=== PATIENT | female | born 1965 | race Caucasian/White ===

== ENCOUNTER 2021-07-23 09:13 | Inpatient (IN) ==
[2021-07-23] MEDS ORDERED: Isovue-370 500 ML BOTTLE IVP ONE (09:19)
[2021-07-23 09:53] LABS: Hematocrit 38.2 % (35.3-44.9); Hemoglobin 12.1 g/dL (11.5-15.4); Mean Corpuscular HGB Conc 31.7 g/dL (31.6-35.5); Mean Corpuscular Hemoglobin 25.9 pg (28.0-33.3); Mean Corpuscular Volume 81.8 fL (83.0-100.0); Mean Platelet Volume 9.8 fL (9.4-12.4); Platelet Count 378 K/mcL (140-400); Red Blood Count 4.67 M/mcL (3.82-4.97); Red Cell Distribution Width 14.4 % (11.5-14.5); White Blood Count 22.1 K/mcL (4.3-11.1)
[2021-07-23 09:55] LABS: VBG HCO3 24 mEq/L (21-27); VBG PCO2 44 mmHg (41-51); VBG PH 7.34 pH Units (7.32-7.42); VBG PO2 37 mmHg (25-50)
[2021-07-23 10:17] LABS: Lymphocytes # 2.2 K/mcL (0.6-4.6); Monocytes # 0.4 K/mcL (0.0-1.3); Neutrophils # 19.5 K/mcL (1.6-8.9); Platelet Estimate Normal (Normal)
[2021-07-23 10:36] LABS: Alanine Aminotransferase 34 Units/L (7-52); Albumin 3.8 g/dL (3.5-5.7); Alkaline Phosphatase 98 Units/L (34-104); Aspartate Amino Transferase 40 Units/L (13-39); BUN/Creatinine Ratio 38 (6-26); Bilirubin,Direct 0.1 mg/dL (0.0-0.2); Bilirubin,Indirect 0.5 mg/dL (0.0-1.0); Bilirubin,Total 0.6 mg/dL (0.3-1.0); Blood Urea Nitrogen 40 mg/dL (6-20); Calcium 9.5 mg/dL (8.6-10.3); Carbon Dioxide 22 mEq/L (23-29); Chloride 101 mEq/L (98-107); Globulin 3.9 g/dL (2.4-3.5); Glucose 197 mg/dL (70-105); Magnesium 2.4 mg/dL (1.6-2.6); Osmolality,Calculated 301 (280-300); Sodium 138 mEq/L (136-145); Total Protein 7.7 g/dL (6.4-8.9); Troponin I 0.03 ng/mL (< 0.04); eGFR For African Americans > 60 (> 60); eGFR For Non-African Americans 55 (> 60)
[2021-07-23 10:55] LABS: Ferritin 940 ng/mL (10-120)
[2021-07-23] MEDS ORDERED: *HR* Heparin 5,000 UNIT/ML VIAL IVP ONE (11:27)
[2021-07-23] MEDS ORDERED: *HR* Heparin 5,000 UNIT/ML VIAL IVP PRN (11:27)
[2021-07-23] MEDS ORDERED: Piperacillin/Tazobactam 3.375 GM in Water for inj. (sterile) 20 ML IVP ONE (11:27)
[2021-07-23] MEDS ORDERED: Potassium Chloride Elixir 20 MEQ/15 ML UDC PO ONE (11:41)
[2021-07-23] MEDS ORDERED: Vancomycin 1,250 MG/262.5 ML IV.SOLN IVPB ONE (12:00)
[2021-07-23] MEDS: Heparin 25,000UNIT/250ML 1/2NS 25,000 UNIT/250 ML IV.SOLN IVC SCH (12:13)
[2021-07-23 12:45] LABS: Hematocrit 36.5 % (35.3-44.9); Hemoglobin 11.6 g/dL (11.5-15.4); Mean Corpuscular HGB Conc 31.8 g/dL (31.6-35.5); Mean Corpuscular Hemoglobin 25.8 pg (28.0-33.3); Mean Corpuscular Volume 81.1 fL (83.0-100.0); Mean Platelet Volume 9.6 fL (9.4-12.4); Platelet Count 302 K/mcL (140-400); Red Cell Distribution Width 14.2 % (11.5-14.5); White Blood Count 22.3 K/mcL (4.3-11.1)
[2021-07-23 12:53] LABS: Heparin anti-factor XA UFH < 0.04 IU/mL (0.30-0.70); INR 1.6; Prothrombin Time 18.2 Seconds (9.4-12.1)
[2021-07-23] MEDS ORDERED: Naloxone 0.4 MG/ML INJ IVP PRN (13:18)
[2021-07-23] MEDS ORDERED: Acetaminophen 325 MG TABLET PO PRN (13:34)
[2021-07-23 13:54] LABS: ABG Base Excess -1 mEq/L (-2 to 3); ABG HCO3 23 mEq/L (21-27); ABG Oxygen Saturation 94 % (95-98); ABG PCO2 35 mmHg (35-45); ABG PH 7.43 pH Units (7.32-7.45); ABG PO2 67 mmHg (85-104); ABG TCO2 24 mEq/L (20-26)
[2021-07-23 16:29] LABS: Influenza A PCR Negative (Negative); Influenza B PCR Negative (Negative); Resp. Syncytial Virus PCR Negative (Negative)
[2021-07-23] MEDS ORDERED: Potassium Chloride 20 MEQ, Lidocaine 1% 2 ML in 0.9 % Sodium Chloride 250 ML IVPB ONE (16:45)
[2021-07-23 17:57] LABS: SARS-CoV-2 by PCR (In House) Positive (Negative)
[2021-07-23 19:32] LABS: C-Reactive Protein 112 mg/L (Less than 10)
[2021-07-23] MEDS: Ipratropium 1 PUFF INHALER IH SCH (20:28)
[2021-07-23] MEDS: Piperacillin/Tazobactam 3.375 GM in 0.9 % Sodium Chloride Mini Bag 100 ML IVPB SCH (23:12)
[2021-07-23] MEDS: Ringers Solution, Lactated 1,000 ML IVC SCH (23:14)
[2021-07-24] MEDS: Piperacillin/Tazobactam 3.375 GM in 0.9 % Sodium Chloride Mini Bag 100 ML IVPB SCH ×3 (00:04→15:20)
[2021-07-24] MEDS: Ipratropium 1 PUFF INHALER IH SCH ×7 (00:07→23:30)
[2021-07-24 04:33] LABS: Basophils % 0.1 %; Hematocrit 28.7 % (35.3-44.9); Immature Granulocytes % 1.8 % (0-4); Lymphocytes # 1.4 K/mcL (0.6-4.6); Lymphocytes % 9.8 %; Mean Corpuscular HGB Conc 32.8 g/dL (31.6-35.5); Mean Corpuscular Hemoglobin 26.7 pg (28.0-33.3); Mean Corpuscular Volume 81.5 fL (83.0-100.0); Monocytes # 0.8 K/mcL (0.0-1.3); Monocytes % 5.6 %; Platelet Count 285 K/mcL (140-400); Red Blood Count 3.52 M/mcL (3.82-4.97); Red Cell Distribution Width 14.5 % (11.5-14.5); Segmented Neutrophils % 82.7 %; White Blood Count 14.7 K/mcL (4.3-11.1)
[2021-07-24 04:46] LABS: Alanine Aminotransferase 22 Units/L (7-52); Albumin 2.9 g/dL (3.5-5.7); Alkaline Phosphatase 75 Units/L (34-104); Aspartate Amino Transferase 22 Units/L (13-39); BUN/Creatinine Ratio 44 (6-26); Bilirubin,Total 0.5 mg/dL (0.3-1.0); Blood Urea Nitrogen 43 mg/dL (6-20); Calcium 8.2 mg/dL (8.6-10.3); Carbon Dioxide 23 mEq/L (23-29); Chloride 109 mEq/L (98-107); Globulin 2.9 g/dL (2.4-3.5); Glucose 163 mg/dL (70-105); Osmolality,Calculated 310 (280-300); Potassium 3.8 mEq/L (3.5-5.1); Sodium 143 mEq/L (136-145); Total Protein 5.8 g/dL (6.4-8.9); eGFR For African Americans > 60 (> 60); eGFR For Non-African Americans 59 (> 60)
[2021-07-24 04:51] LABS: Hemoglobin 9.4 g/dL (11.5-15.4); Neutrophils # 12.2 K/mcL (1.6-8.9)
[2021-07-24 05:56] LABS: Platelet Estimate Normal (Normal); Reactive Lymphocytes Present (Not Present)
[2021-07-24] MEDS: Cholecalciferol (D-3) 1,000 UNIT (25MCG) TABLET PO SCH (07:28)
[2021-07-24] MEDS: Ringers Solution, Lactated 1,000 ML IVC SCH (08:43)
[2021-07-24] MEDS: Heparin 25,000UNIT/250ML 1/2NS 25,000 UNIT/250 ML IV.SOLN IVC SCH (11:18)
[2021-07-24 11:51] LABS: C-Reactive Protein 62 mg/L (Less than 10)
[2021-07-25] MEDS: Piperacillin/Tazobactam 3.375 GM in 0.9 % Sodium Chloride Mini Bag 100 ML IVPB SCH ×4 (00:16→23:15)
[2021-07-25] MEDS: Ipratropium 1 PUFF INHALER IH SCH ×6 (03:22→23:59)
[2021-07-25] MEDS ORDERED: *HR* LORazepam 2 MG/ML VIAL IVP ONE (06:04)
[2021-07-25] MEDS ORDERED: Morphine Sulfate 2 MG/ML SYRINGE IVP ONE (06:20)
[2021-07-25] MEDS ORDERED: *HR* LORazepam 2 MG/ML VIAL IVP STA (08:56)
[2021-07-25] MEDS: Cholecalciferol (D-3) 1,000 UNIT (25MCG) TABLET PO SCH (09:36)
[2021-07-25] MEDS: Dexmedetomidine HCl 400 MCG/100 ML MLS IVC SCH (10:28)
[2021-07-25 15:15] LABS: Basophils # 0.1 K/mcL (0.0-0.2); Basophils % 0.3 %; Hematocrit 30.2 % (35.3-44.9); Hemoglobin 9.5 g/dL (11.5-15.4); Lymphocytes # 0.8 K/mcL (0.6-4.6); Lymphocytes % 4.4 %; Mean Corpuscular HGB Conc 31.5 g/dL (31.6-35.5); Mean Corpuscular Volume 82.5 fL (83.0-100.0); Monocytes # 0.4 K/mcL (0.0-1.3); Monocytes % 2.2 %; Neutrophils # 15.4 K/mcL (1.6-8.9); Nucleated Red Blood Cells 0.1 /100 WBC (0); Platelet Count 256 K/mcL (140-400); Red Blood Count 3.66 M/mcL (3.82-4.97); Red Cell Distribution Width 14.6 % (11.5-14.5); Segmented Neutrophils % 89.1 %; White Blood Count 17.3 K/mcL (4.3-11.1)
[2021-07-25 15:59] LABS: Alanine Aminotransferase 28 Units/L (7-52); Albumin 3.1 g/dL (3.5-5.7); Alkaline Phosphatase 187 Units/L (34-104); Aspartate Amino Transferase 43 Units/L (13-39); BUN/Creatinine Ratio 42 (6-26); Bilirubin,Total 0.7 mg/dL (0.3-1.0); Blood Urea Nitrogen 34 mg/dL (6-20); Calcium 8.3 mg/dL (8.6-10.3); Carbon Dioxide 24 mEq/L (23-29); Chloride 109 mEq/L (98-107); Ferritin 565 ng/mL (10-120); Globulin 3.1 g/dL (2.4-3.5); Glucose 188 mg/dL (70-105); Lactate Dehydrogenase 962 Units/L (140-271); Osmolality,Calculated 307 (280-300); Sodium 142 mEq/L (136-145); Total Protein 6.2 g/dL (6.4-8.9); eGFR For African Americans > 60 (> 60); eGFR For Non-African Americans > 60 (> 60)
[2021-07-26] MEDS: *HR* Heparin 5,000 UNIT/ML VIAL IVP PRN (00:47)
[2021-07-26] MEDS: Heparin 25,000UNIT/250ML 1/2NS 25,000 UNIT/250 ML IV.SOLN IVC SCH (02:31)
[2021-07-26] MEDS: Ipratropium 1 PUFF INHALER IH SCH ×5 (03:04→19:59)
[2021-07-26] MEDS: Dexmedetomidine HCl 400 MCG/100 ML MLS IVC SCH ×2 (03:55→17:27)
[2021-07-26 04:59] LABS: Basophils % 0.2 %; Hematocrit 29.4 % (35.3-44.9); Hemoglobin 9.5 g/dL (11.5-15.4); Immature Granulocytes % 3.2 % (0-4); Lymphocytes # 1.1 K/mcL (0.6-4.6); Lymphocytes % 6.7 %; Mean Corpuscular HGB Conc 32.3 g/dL (31.6-35.5); Mean Corpuscular Hemoglobin 26.6 pg (28.0-33.3); Mean Corpuscular Volume 82.4 fL (83.0-100.0); Mean Platelet Volume 10.1 fL (9.4-12.4); Monocytes # 0.4 K/mcL (0.0-1.3); Monocytes % 2.2 %; Neutrophils # 14.1 K/mcL (1.6-8.9); Nucleated Red Blood Cells 0.1 /100 WBC (0); Platelet Count 240 K/mcL (140-400); Red Blood Count 3.57 M/mcL (3.82-4.97); Red Cell Distribution Width 14.6 % (11.5-14.5); Segmented Neutrophils % 87.7 %; White Blood Count 16.1 K/mcL (4.3-11.1)
[2021-07-26 06:47] LABS: BUN/Creatinine Ratio 45 (6-26); Blood Urea Nitrogen 38 mg/dL (6-20); Calcium 8.5 mg/dL (8.6-10.3); Carbon Dioxide 25 mEq/L (23-29); Chloride 110 mEq/L (98-107); Glucose 133 mg/dL (70-105); Osmolality,Calculated 309 (280-300); Potassium 3.9 mEq/L (3.5-5.1); Sodium 144 mEq/L (136-145); eGFR For African Americans > 60 (> 60); eGFR For Non-African Americans > 60 (> 60)
[2021-07-26] MEDS ORDERED: Furosemide 40 MG/4 ML VIAL IVP ONE (07:55)
[2021-07-26] MEDS: Piperacillin/Tazobactam 3.375 GM in 0.9 % Sodium Chloride Mini Bag 100 ML IVPB SCH ×2 (12:04→17:11)
[2021-07-26] MEDS: Cholecalciferol (D-3) 1,000 UNIT (25MCG) TABLET PO SCH ×2 (12:16→13:02)
[2021-07-27] MEDS: Ipratropium 1 PUFF INHALER IH SCH ×6 (00:11→20:39)
[2021-07-27] MEDS: Piperacillin/Tazobactam 3.375 GM in 0.9 % Sodium Chloride Mini Bag 100 ML IVPB SCH ×4 (00:49→23:51)
[2021-07-27] MEDS: Ondansetron 4 MG/2 ML VIAL IVP PRN ×2 (02:53→21:39)
[2021-07-27] MEDS: Heparin 25,000UNIT/250ML 1/2NS 25,000 UNIT/250 ML IV.SOLN IVC SCH ×3 (03:58→16:54)
[2021-07-27 04:32] LABS: Basophils % 0.1 %; Hematocrit 27.9 % (35.3-44.9); Hemoglobin 9.1 g/dL (11.5-15.4); Immature Granulocytes % 3.4 % (0-4); Lymphocytes # 0.8 K/mcL (0.6-4.6); Lymphocytes % 5.2 %; Mean Corpuscular HGB Conc 32.6 g/dL (31.6-35.5); Mean Corpuscular Hemoglobin 26.7 pg (28.0-33.3); Mean Corpuscular Volume 81.8 fL (83.0-100.0); Mean Platelet Volume 10.5 fL (9.4-12.4); Monocytes # 0.3 K/mcL (0.0-1.3); Monocytes % 1.9 %; Neutrophils # 13.9 K/mcL (1.6-8.9); Nucleated Red Blood Cells 0.2 /100 WBC (0); Platelet Count 250 K/mcL (140-400); Red Blood Count 3.41 M/mcL (3.82-4.97); Red Cell Distribution Width 14.6 % (11.5-14.5); Segmented Neutrophils % 89.4 %; White Blood Count 15.5 K/mcL (4.3-11.1)
[2021-07-27 05:11] LABS: Alanine Aminotransferase 31 Units/L (7-52); Albumin 2.8 g/dL (3.5-5.7); Albumin/Globulin Ratio 0.8 (1.1-2.2); Alkaline Phosphatase 237 Units/L (34-104); Aspartate Amino Transferase 31 Units/L (13-39); BUN/Creatinine Ratio 46 (6-26); Bilirubin,Total 0.8 mg/dL (0.3-1.0); Blood Urea Nitrogen 37 mg/dL (6-20); Calcium 8.1 mg/dL (8.6-10.3); Carbon Dioxide 25 mEq/L (23-29); Chloride 105 mEq/L (98-107); Globulin 3.4 g/dL (2.4-3.5); Glucose 152 mg/dL (70-105); Lactate Dehydrogenase 873 Units/L (140-271); Osmolality,Calculated 306 (280-300); Potassium 3.6 mEq/L (3.5-5.1); Sodium 142 mEq/L (136-145); Total Protein 6.2 g/dL (6.4-8.9); eGFR For African Americans > 60 (> 60); eGFR For Non-African Americans > 60 (> 60)
[2021-07-27 05:28] LABS: Ferritin 556 ng/mL (10-120)
[2021-07-27] MEDS ORDERED: Furosemide 40 MG/4 ML VIAL IVP ONE (08:07)
[2021-07-27] MEDS: Pantoprazole 40 MG VIAL IVP SCH (08:44)
[2021-07-27] MEDS: Cholecalciferol (D-3) 1,000 UNIT (25MCG) TABLET PO SCH (08:44)
[2021-07-27] MEDS: *HR* LORazepam 2 MG/ML VIAL IVP PRN (08:45)
[2021-07-27] MEDS: Dexmedetomidine HCl 400 MCG/100 ML MLS IVC SCH (11:21)
[2021-07-28] MEDS: Ipratropium 1 PUFF INHALER IH SCH ×7 (00:13→23:15)
[2021-07-28] MEDS: Dexmedetomidine HCl 400 MCG/100 ML MLS IVC SCH ×2 (05:00→17:03)
[2021-07-28] MEDS: Piperacillin/Tazobactam 3.375 GM in 0.9 % Sodium Chloride Mini Bag 100 ML IVPB SCH ×2 (08:05→16:52)
[2021-07-28] MEDS: Pantoprazole 40 MG VIAL IVP SCH (08:06)
[2021-07-28] MEDS: Cholecalciferol (D-3) 1,000 UNIT (25MCG) TABLET PO SCH (08:06)
[2021-07-28 11:13] LABS: Basophils % 0.2 %; Hematocrit 30.8 % (35.3-44.9); Hemoglobin 9.7 g/dL (11.5-15.4); Immature Granulocytes % 1.9 % (0-4); Lymphocytes # 0.5 K/mcL (0.6-4.6); Lymphocytes % 3.2 %; Mean Corpuscular HGB Conc 31.5 g/dL (31.6-35.5); Mean Corpuscular Hemoglobin 26.1 pg (28.0-33.3); Mean Corpuscular Volume 82.8 fL (83.0-100.0); Mean Platelet Volume 10.3 fL (9.4-12.4); Monocytes # 0.3 K/mcL (0.0-1.3); Monocytes % 1.9 %; Neutrophils # 15.4 K/mcL (1.6-8.9); Nucleated Red Blood Cells 0.1 /100 WBC (0); Platelet Count 263 K/mcL (140-400); Red Blood Count 3.72 M/mcL (3.82-4.97); Segmented Neutrophils % 92.8 %; White Blood Count 16.6 K/mcL (4.3-11.1)
[2021-07-28] MEDS: Heparin 25,000UNIT/250ML 1/2NS 25,000 UNIT/250 ML IV.SOLN IVC SCH (11:13)
[2021-07-28 11:38] LABS: Alanine Aminotransferase 25 Units/L (7-52); Albumin/Globulin Ratio 0.9 (1.1-2.2); Alkaline Phosphatase 233 Units/L (34-104); Aspartate Amino Transferase 30 Units/L (13-39); BUN/Creatinine Ratio 51 (6-26); Bilirubin,Total 0.9 mg/dL (0.3-1.0); Blood Urea Nitrogen 40 mg/dL (6-20); Calcium 8.4 mg/dL (8.6-10.3); Carbon Dioxide 25 mEq/L (23-29); Chloride 102 mEq/L (98-107); Globulin 3.4 g/dL (2.4-3.5); Glucose 143 mg/dL (70-105); Osmolality,Calculated 298 (280-300); Potassium 3.6 mEq/L (3.5-5.1); Sodium 138 mEq/L (136-145); Total Protein 6.4 g/dL (6.4-8.9); eGFR For African Americans > 60 (> 60); eGFR For Non-African Americans > 60 (> 60)
[2021-07-28] MEDS ORDERED: Furosemide 40 MG/4 ML VIAL IVP ONE (11:49)
[2021-07-29] MEDS: Piperacillin/Tazobactam 3.375 GM in 0.9 % Sodium Chloride Mini Bag 100 ML IVPB SCH ×3 (00:13→17:32)
[2021-07-29] MEDS: Ipratropium 1 PUFF INHALER IH SCH ×5 (03:53→20:26)
[2021-07-29] MEDS: *HR* LORazepam 2 MG/ML VIAL IVP PRN (04:17)
[2021-07-29] MEDS: Dexmedetomidine HCl 400 MCG/100 ML MLS IVC SCH ×3 (04:43→17:21)
[2021-07-29 05:00] LABS: Basophils % 0.1 %; Eosinophils % 0.1 %; Hematocrit 32.8 % (35.3-44.9); Hemoglobin 10.3 g/dL (11.5-15.4); Immature Granulocytes % 1.8 % (0-4); Lymphocytes # 0.7 K/mcL (0.6-4.6); Lymphocytes % 4.5 %; Mean Corpuscular HGB Conc 31.4 g/dL (31.6-35.5); Mean Corpuscular Hemoglobin 25.9 pg (28.0-33.3); Mean Corpuscular Volume 82.6 fL (83.0-100.0); Mean Platelet Volume 10.6 fL (9.4-12.4); Monocytes # 0.3 K/mcL (0.0-1.3); Monocytes % 1.8 %; Neutrophils # 13.4 K/mcL (1.6-8.9); Platelet Count 269 K/mcL (140-400); Red Blood Count 3.97 M/mcL (3.82-4.97); Red Cell Distribution Width 14.9 % (11.5-14.5); Segmented Neutrophils % 91.7 %; White Blood Count 14.7 K/mcL (4.3-11.1)
[2021-07-29 05:17] LABS: Alanine Aminotransferase 29 Units/L (7-52); Albumin 2.9 g/dL (3.5-5.7); Albumin/Globulin Ratio 0.8 (1.1-2.2); Alkaline Phosphatase 238 Units/L (34-104); Aspartate Amino Transferase 32 Units/L (13-39); BUN/Creatinine Ratio 53 (6-26); Blood Urea Nitrogen 41 mg/dL (6-20); Calcium 8.3 mg/dL (8.6-10.3); Carbon Dioxide 27 mEq/L (23-29); Chloride 100 mEq/L (98-107); Globulin 3.7 g/dL (2.4-3.5); Glucose 122 mg/dL (70-105); Osmolality,Calculated 299 (280-300); Potassium 3.5 mEq/L (3.5-5.1); Sodium 139 mEq/L (136-145); Total Protein 6.6 g/dL (6.4-8.9); eGFR For African Americans > 60 (> 60); eGFR For Non-African Americans > 60 (> 60)
[2021-07-29] MEDS ORDERED: Lidocaine -MPF 1% 5 ML AMPUL INFILT ONE (08:19)
[2021-07-29 09:37] LABS: Magnesium 2.3 mg/dL (1.6-2.6); Triglycerides 348 mg/dL (< 150)
[2021-07-29] MEDS: Furosemide 40 MG/4 ML VIAL IVP SCH (10:14)
[2021-07-29] MEDS: Pantoprazole 40 MG VIAL IVP SCH (10:14)
[2021-07-29] MEDS: Cholecalciferol (D-3) 1,000 UNIT (25MCG) TABLET PO SCH (10:15)
[2021-07-29] MEDS ORDERED: *HR* Dextrose 50 % in Water (Syg) 50 ML SYRINGE IVP PRN (10:24)
[2021-07-29] MEDS ORDERED: D5% in Water 1,000 ML IVC PRN (10:24)
[2021-07-29] MEDS ORDERED: Dextrose Gel 15 GM/37.5 ML TUBE PO PRN ×2 (10:24)
[2021-07-29] MEDS ORDERED: Insulin LISPRO 300 UNITS/3 ML VIAL SUBQ SCH (10:30)
[2021-07-29] MEDS ORDERED: D10% in Water 500 ML IVC PRN ×3 (10:41→10:53)
[2021-07-29] MEDS: Insulin LISPRO 300 UNITS/3 ML VIAL SUBQ SCH ×3 (13:33→22:07)
[2021-07-29] MEDS: Heparin 25,000UNIT/250ML 1/2NS 25,000 UNIT/250 ML IV.SOLN IVC SCH (14:45)
[2021-07-29] MEDS ORDERED: Clinimix E 5%-15% SOLUTION 2,000 ML with MVI, adult with vitamin K 10 ML IVC SCH (17:00)
[2021-07-29] MEDS ORDERED: Fat Emulsions 20% 250 ML IVPB SCH (17:00)
[2021-07-29] MEDS: *HR* Heparin 5,000 UNIT/ML VIAL IVP PRN (17:19)
[2021-07-30] MEDS: Piperacillin/Tazobactam 3.375 GM in 0.9 % Sodium Chloride Mini Bag 100 ML IVPB SCH ×3 (00:08→17:22)
[2021-07-30] MEDS: Ipratropium 1 PUFF INHALER IH SCH ×7 (00:16→23:36)
[2021-07-30] MEDS: Insulin LISPRO 300 UNITS/3 ML VIAL SUBQ SCH ×6 (00:46→22:50)
[2021-07-30 03:57] LABS: Magnesium 2.5 mg/dL (1.6-2.6); Phosphorous 7.5 mg/dL (2.7-4.5)
[2021-07-30 05:55] LABS: Basophils # 0.1 K/mcL (0.0-0.2); Basophils % 0.3 %; Eosinophils % 0.2 %; Hematocrit 32.7 % (35.3-44.9); Hemoglobin 10.6 g/dL (11.5-15.4); Immature Granulocytes % 2.9 % (0-4); Lymphocytes # 0.7 K/mcL (0.6-4.6); Lymphocytes % 3.6 %; Mean Corpuscular HGB Conc 32.4 g/dL (31.6-35.5); Mean Platelet Volume 11.1 fL (9.4-12.4); Monocytes # 0.3 K/mcL (0.0-1.3); Monocytes % 1.6 %; Neutrophils # 17.4 K/mcL (1.6-8.9); Nucleated Red Blood Cells 0.2 /100 WBC (0); Platelet Count 260 K/mcL (140-400); Red Blood Count 3.92 M/mcL (3.82-4.97); Red Cell Distribution Width 14.8 % (11.5-14.5); Segmented Neutrophils % 91.4 %; White Blood Count 19.1 K/mcL (4.3-11.1)
[2021-07-30 05:56] LABS: Mean Corpuscular Volume 83.4 fL (83.0-100.0)
[2021-07-30] MEDS: Pantoprazole 40 MG VIAL IVP SCH (09:22)
[2021-07-30] MEDS: Cholecalciferol (D-3) 1,000 UNIT (25MCG) TABLET PO SCH (09:29)
[2021-07-30 10:47] LABS: Alanine Aminotransferase 45 Units/L (7-52); Albumin 2.9 g/dL (3.5-5.7); Albumin/Globulin Ratio 0.9 (1.1-2.2); Alkaline Phosphatase 208 Units/L (34-104); Aspartate Amino Transferase 47 Units/L (13-39); BUN/Creatinine Ratio 48 (6-26); Bilirubin,Total 0.9 mg/dL (0.3-1.0); Blood Urea Nitrogen 29 mg/dL (6-20); Calcium 8.5 mg/dL (8.6-10.3); Carbon Dioxide 28 mEq/L (23-29); Chloride 101 mEq/L (98-107); Globulin 3.4 g/dL (2.4-3.5); Glucose 157 mg/dL (70-105); Lactate Dehydrogenase 664 Units/L (140-271); Osmolality,Calculated 299 (280-300); Potassium 3.3 mEq/L (3.5-5.1); Sodium 140 mEq/L (136-145); Total Protein 6.3 g/dL (6.4-8.9); eGFR For African Americans > 60 (> 60); eGFR For Non-African Americans > 60 (> 60)
[2021-07-30] MEDS ORDERED: Potassium Chloride 40 MEQ, Lidocaine 1% 2 ML in 0.9 % Sodium Chloride 500 ML IVPB ONE (10:53)
[2021-07-30] MEDS: Furosemide 40 MG/4 ML VIAL IVP SCH (11:33)
[2021-07-30] MEDS: Dexmedetomidine HCl 400 MCG/100 ML MLS IVC SCH (11:34)
[2021-07-30 11:35] LABS: Ferritin 772 ng/mL (10-120)
[2021-07-30] MEDS ORDERED: Clinimix 5%-20% SOLUTION 2,000 ML with MVI, adult with vitamin K 10 ML, Sodium Acetat... IVC SCH (17:00)
[2021-07-30] MEDS ORDERED: Clinimix E 5%-15% SOLUTION 2,000 ML with MVI, adult with vitamin K 10 ML IVC SCH (17:00)
[2021-07-30] MEDS: Heparin 25,000UNIT/250ML 1/2NS 25,000 UNIT/250 ML IV.SOLN IVC SCH (17:23)
[2021-07-30] MEDS: *HR* LORazepam 2 MG/ML VIAL IVP PRN (22:49)
[2021-07-31] MEDS: Dexmedetomidine HCl 400 MCG/100 ML MLS IVC SCH ×3 (02:30→19:41)
[2021-07-31] MEDS: Insulin LISPRO 300 UNITS/3 ML VIAL SUBQ SCH ×6 (02:47→21:31)
[2021-07-31] MEDS: Ipratropium 1 PUFF INHALER IH SCH ×5 (03:40→20:32)
[2021-07-31] MEDS: *HR* LORazepam 2 MG/ML VIAL IVP PRN ×3 (05:02→20:14)
[2021-07-31 05:46] LABS: BUN/Creatinine Ratio 51 (6-26); Blood Urea Nitrogen 28 mg/dL (6-20); Calcium 8.5 mg/dL (8.6-10.3); Carbon Dioxide 33 mEq/L (23-29); Chloride 103 mEq/L (98-107); Glucose 98 mg/dL (70-105); Magnesium 1.8 mg/dL (1.6-2.6); Osmolality,Calculated 299 (280-300); Phosphorous 1.8 mg/dL (2.7-4.5); Potassium 3.8 mEq/L (3.5-5.1); Sodium 142 mEq/L (136-145); eGFR For African Americans > 60 (> 60); eGFR For Non-African Americans > 60 (> 60)
[2021-07-31] MEDS ORDERED: *HR* LORazepam 2 MG/ML VIAL IVP ONE (08:29)
[2021-07-31] MEDS: Furosemide 40 MG/4 ML VIAL IVP SCH (08:57)
[2021-07-31] MEDS: Heparin 25,000UNIT/250ML 1/2NS 25,000 UNIT/250 ML IV.SOLN IVC SCH (10:14)
[2021-07-31] MEDS: Cholecalciferol (D-3) 1,000 UNIT (25MCG) TABLET PO SCH (10:15)
[2021-07-31] MEDS: Pantoprazole 40 MG VIAL IVP SCH (12:21)
[2021-07-31] MEDS ORDERED: Clinimix 5%-20% SOLUTION 2,000 ML with MVI, adult with vitamin K 10 ML, Sodium Acetat... IVC SCH (17:00)
[2021-07-31] MEDS ORDERED: Clinimix E 5%-15% SOLUTION 2,000 ML with MVI, adult with vitamin K 10 ML IVC SCH ×2 (17:00)
[2021-07-31] MEDS: *HR* Enoxaparin 60 MG/0.6 ML SYRINGE SQ SCH (20:57)
[2021-07-31] MEDS ORDERED: Benzonatate 100 MG CAPSULE PO STA (22:15)
[2021-08-01] MEDS: Insulin LISPRO 300 UNITS/3 ML VIAL SUBQ SCH ×3 (00:17→13:04)
[2021-08-01] MEDS ORDERED: *HR* LORazepam 2 MG/ML VIAL IVP ONE ×3 (00:32→03:55)
[2021-08-01] MEDS: Dexmedetomidine HCl 400 MCG/100 ML MLS IVC SCH ×3 (01:57→13:47)
[2021-08-01] MEDS ORDERED: Morphine Sulfate 2 MG/ML SYRINGE IVP ONE ×3 (03:19→06:00)
[2021-08-01] MEDS: Ipratropium 1 PUFF INHALER IH SCH ×5 (04:16→19:37)
[2021-08-01] MEDS ORDERED: *HR* LORazepam 2 MG/ML VIAL IM STA (04:39)
[2021-08-01] MEDS: *HR* LORazepam 2 MG/ML VIAL IVP PRN ×2 (04:43→14:40)
[2021-08-01 05:03] LABS: Magnesium < 0.5 mg/dL (1.6-2.6); Phosphorous 9.4 mg/dL (2.7-4.5)
[2021-08-01] MEDS: *HR* Enoxaparin 60 MG/0.6 ML SYRINGE SQ SCH (06:08)
[2021-08-01 07:56] VITALS: BP 99/74; PULSE 89; TEMP 97.8; O2SAT 66
[2021-08-01 08:55] LABS: BUN/Creatinine Ratio 73 (6-26); Blood Urea Nitrogen 41 mg/dL (6-20); Calcium 8.8 mg/dL (8.6-10.3); Carbon Dioxide 28 mEq/L (23-29); Chloride 103 mEq/L (98-107); Glucose 200 mg/dL (70-105); Osmolality,Calculated 304 (280-300); Potassium 4.3 mEq/L (3.5-5.1); Sodium 139 mEq/L (136-145); eGFR For African Americans > 60 (> 60); eGFR For Non-African Americans > 60 (> 60)
[2021-08-01 09:31] LABS: Alanine Aminotransferase 29 Units/L (7-52); Albumin 2.8 g/dL (3.5-5.7); Albumin/Globulin Ratio 0.8 (1.1-2.2); Alkaline Phosphatase 196 Units/L (34-104); Aspartate Amino Transferase 31 Units/L (13-39); Bilirubin,Total 0.6 mg/dL (0.3-1.0); Globulin 3.3 g/dL (2.4-3.5); Total Protein 6.1 g/dL (6.4-8.9)
[2021-08-01] MEDS ORDERED: D10% in Water 500 ML IVC PRN (12:06)
[2021-08-01] MEDS: Morphine Sulfate 2 MG/ML SYRINGE IVP PRN ×3 (12:42→15:05)
[2021-08-01] MEDS: Furosemide 40 MG/4 ML VIAL IVP SCH (13:05)
[2021-08-01] MEDS ORDERED: Morphine Sulfate 2 MG/ML SYRINGE IVP PRN (15:15)
== END 2021-08-01 20:08 | disposition expired | DRG 720 ==
LOC: EMEROOARM 09:13 → 3NENU 09:13 → SUATTDRO 21:11 → 3NENU 21:34
PROVIDERS: ADMIT General Practice; ATTEND Internal Medicine